=== PATIENT | female | born 1935 | race Caucasian/White ===

== ENCOUNTER 2018-09-30 16:30 | Inpatient (IN) | payer OTHER, MEDICARE ==
[~2018-09-30] VITALS: Ht 152.4 cm; Wt 49.0 kg
[2018-09-30 16:46] VITALS: BP 138/52
[2018-09-30 17:34] LABS: URINE BILIRUBIN NEGATIVE (Negative); URINE BLOOD 2+ (Negative); URINE CLARITY CLEAR; URINE COLOR YELLOW; URINE GLUCOSE-RANDOM* 1+ (Negative); URINE KETONES NEGATIVE (Negative); URINE LEUKOCYTES 1+ (Negative); URINE NITRITE NEGATIVE (Negative); URINE PROTEIN (DIPSTICK) 2+ (Negative); URINE UROBILINOGEN 0.2 E.U./dl (0.2-1.0)
[2018-09-30 17:38] LABS: SQUAMOUS 4-10 Moderate /LPF (0-3); URINE WBC 6-15 Few /HPF (0-5)
[2018-09-30 17:39] LABS: BACTERIA 1-9 Few /HPF (None Seen); CRYSTALS None Seen /LPF (None Seen); URINE RBC 0-2 Rare /HPF (0-2)
[2018-09-30] MEDS ORDERED: METFORMIN HCL500 MG PO (18:19)
[2018-09-30 18:20] LABS: ABSOLUTE NEUTROPHILS 3.1 thou/uL (1.4-8.2); BASOPHILS 0.3 % (0.0-2.0); EOSINOPHILS 1.6 % (0.0-3.0); HEMATOCRIT 26.7 % (37.0-47.0); HEMOGLOBIN 9.6 gm/dL (12.0-15.0); LYMPHOCYTES 21.3 % (24.0-44.0); MCH 31.5 pg (26.0-34.0); MCHC 35.8 g/dL (28.0-37.0); MCV 87.9 fL (80.0-100.0); MONOCYTES 11.7 % (1.0-8.0); PLATELET COUNT 241 thou/uL (150-400); POLYS 65.1 % (36.0-66.0); RBC 3.04 mil/uL (4.20-5.00); RDW 13.9 % (10.5-14.5); WBC 4.7 thou/uL (4.0-11.0)
[2018-09-30] MEDS ORDERED: COZAAR 25 MG TA25 M1 PO (18:20)
[2018-09-30] MEDS ORDERED: SENNA8.6 MG PO (18:20)
[2018-09-30] MEDS ORDERED: AMARYL2 MG PO (18:20)
[2018-09-30] MEDS ORDERED: NEXIUM40 MG PO (18:20)
[2018-09-30] MEDS ORDERED: PROBIOTIC1 EAC1 PO (18:21)
[2018-09-30] MEDS ORDERED: DOXYCYCLINE 10100 MG PO (18:21)
[2018-09-30] MEDS ORDERED: CLEOCIN HCL150 MG PO (18:21)
[2018-09-30] MEDS ORDERED: OCUVITE ADULT1 EAC1 PO (18:22)
[2018-09-30 18:35] LABS: ALBUMIN 3.2 g/dL (3.4-5.0); ANION GAP 7 mmol/L (7-16); BUN 23 mg/dL (7-18); CALCIUM 8.6 mg/dL (8.5-10.1); CHLORIDE 80 mmol/L (98-107); CO2 24 mmol/L (21-32); CREATININE 0.6 mg/dL (0.6-1.0); GLUCOSE 133 mg/dL (74-106); POTASSIUM 4.1 mmol/L (3.5-5.1); SGOT 29 U/L (15-37); SGPT 27 U/L (30-65); TOTAL BILIRUBIN 0.5 mg/dL (<0.1-1.0); TOTAL PROTEIN 6.9 g/dL (6.4-8.2); TROPONIN-I <0.06 ng/mL (<0.06)
[2018-09-30 18:38] LABS: SODIUM 111 mmol/L (136-145)
[2018-09-30 21:42] LABS: URINE POTASSIUM-RANDOM* 51.7 mmol/L
[2018-09-30 22:47] VITALS: BP 169/73
[2018-09-30 22:49] VITALS: BP 169/73
[2018-09-30 23:59] VITALS: BP 150/64
[2018-10-01] MEDS ORDERED: OCUVITE ADULT1 EAC1 PO (00:36)
[2018-10-01 04:43] LABS: CALCIUM 8.2 mg/dL (8.5-10.1); CREATININE 0.5 mg/dL (0.6-1.0); POTASSIUM 4.1 mmol/L (3.5-5.1)
[2018-10-01 04:45] VITALS: BP 147/69
[2018-10-01 07:48] VITALS: BP 138/65
--- NOTE | 2018-10-01 10:55 | EKG ---
[address] [address] ELECTROCARDIOGRAM REPORT Name: BORIS ORDOÑEZ Room #: 362-P ADM IN M.R.#: [id number] Admission: 09/30/18 Attend Phys: Garcia Plaza MD Discharge: Date of : 34 Report #: [id number] THIS REPORT FOR: //name// [facility] ED Test Date: 2018-09-30 Test Time: 17:47:32 Pat Name: BORIS WEEMS Department: Room: 362 Gender: F Account Review Specialist: GEOFFREY : 1935 Requested By: Genet Bosch Order Number: [id number] MD: Alexei Dickson Measurements Intervals [place] Rate: 74 P: -11 OK: 160 QRS: 35 QRSD: 87 T: 35 QT: 388 QTc: 431 Interpretive Statements Sinus rhythm No previous ECG available for comparison Electronically Signed On 10-01-2018 10:55:19 CDT by Alexei Dickson [email or web address] <ELECTRONICALLY SIGNED> By: Alexei Dickson MD 10/01/18 1055 1747 1747 Alexei Dickson MD /EPI
[2018-10-01 15:52] VITALS: BP 159/74
--- NOTE | 2018-10-01 15:54 | H ---
[facility] [place] [address] HISTORY AND PHYSICAL Name: BORIS ORDOÑEZ Room #: 362-P ADM IN M.R.#: [id number] Admission: 09/30/18 Attend Phys: Garcia Plaza MD Discharge: Date of : 34 Report #: [id number] THIS REPORT FOR: //name// CC: Garcia Plaza DATE OF SERVICE: 09/30/2018 CHIEF COMPLAINT: Confusion. HISTORY OF PRESENT ILLNESS: The patient is an 83-year-old female who was brought to the Emergency Room last night by her family with confusion. They said for the last couple of days, she has lost her appetite and has had increased confusion, yesterday things seemed worse and they have noted that she has had a history of hyponatremia and anemia that required hospitalization in the past and brought her to the Emergency Room. The patient really could not provide any details due to her confusion. Her sodium on admission to ER yesterday was 111. She was hospitalized a month or 6 weeks ago with similar episode of hyponatremia with sodium, I believe around 115-117. 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 She has been treated by the bookmaker's clerk for about 6 months after callus was removed and she has had ongoing slow healing wound. This is being addressed at [facility] in the Wound Care Center on her bookmaker's clerk there. She has had an imaging study of the toe with no osteomyelitis and I believe an arterial study, which showed no significant arterial disease. She has been off and on antibiotics for several months including clindamycin, Bactrim and most recently doxycycline. PAST MEDICAL HISTORY: She has had several episodes of hyponatremia. First episode was several years ago when she had sinus surgery and it was attributed to the surgery and anesthesia itself. Her baseline sodium in the office seems to trend around 129-134. She also has a history of diabetes type 2, chronic sinusitis, hearing loss, osteoarthritis and proteinuria. She takes an ARB. PAST SURGICAL HISTORY: As above. FAMILY HISTORY: Noncontributory. SOCIAL HISTORY: She lives with her family. No chronic alcohol or tobacco use. ALLERGIES: SULFA. MEDICATIONS: Metformin, glimepiride, Cozaar, Senokot, Nexium, doxycycline, acidophilus, Ocuvite. [facility] [address] [place] [address] HISTORY AND PHYSICAL Name: BORIS ORDOÑEZ Room #: 362-P [facility] IN ..#: [id number] Admission: 09/30/18 Attend Phys: Garcia Plaza MD Discharge: Date of : 34 Report #: [id number] REVIEW OF SYSTEMS: She is unable to give review, but was complaining to the nurses earlier last night of back pain. OBJECTIVE: PHYSICAL EXAMINATION: VITAL SIGNS: Temperature 36.6, pulse 71, respirations 16, blood pressure 138/65, O2 sat 100% on room air. GENERAL: She is asleep, but easily arousable, appears confused, seems to recognize me. HEAD AND NECK: Unremarkable. She is hard of hearing. LUNGS: Clear. HEART: Regular. ABDOMEN: Soft, normoactive bowel sounds. EXTREMITIES: No edema. The right first toe has a dry old callous wound underneath on the plantar surface. No redness or drainage. NEUROLOGIC: She moves all extremities equally. LABORATORY DATA: Sodium this morning was 117, hemoglobin 9.6. Urinalysis had 2+ protein, few WBCs and bacteria. ASSESSMENT: 1. Hyponatremia. 2. Metabolic encephalopathy due to the above. 3. Anemia of chronic disease. 4. Diabetes type 2. 5. Electrolyte imbalance with hypomagnesemia. 6. Nonhealing wound, right first toe. PLAN: She has received normal saline overnight and her sodium is slightly improved. I will adjust the rate. I have asked the renal service to review her situation and see if there is any other medical cause of this issue other than medication effect, could this be result of antibiotics or possibly glimepiride. This is noted to have a very low percentage chance of hypoglycemia that will be discontinued for now. <ELECTRONICALLY SIGNED> By: Garcia Plaza MD 10/01/18 1554 0803 0824 Garcia Plaza MD /nt
[2018-10-01 16:15] LABS: CALCIUM 8.2 mg/dL (8.5-10.1); CREATININE 0.5 mg/dL (0.6-1.0); POTASSIUM 3.9 mmol/L (3.5-5.1)
--- NOTE | 2018-10-01 18:59 | NUR ---
ASSUMED PATIENT CARE AT 0700. A/O X2. DRWOSY. C/O BACK. XY SHOW LUMBER VERTEBRAL COMPRESION FRACTURE. INCONTINENT URINE. BED ARLRM ON. SLOWLY TOWARDS POC GOLAS.
[2018-10-01 19:45] VITALS: BP 166/83
[2018-10-02 04:42] VITALS: BP 138/55
[2018-10-02 05:28] LABS: CALCIUM 8.1 mg/dL (8.5-10.1); CREATININE 0.5 mg/dL (0.6-1.0); POTASSIUM 3.7 mmol/L (3.5-5.1)
--- NOTE | 2018-10-02 05:37 | NUR ---
PATIENT IS ALERT TO SELF. PATIENT HAS COMPRESSION FX POSSIBLE PROCEDURE WEDNESDAY. PATIENT IS ROOM AIR. PATIENT IS BED REST. PATIENT IS INCONTIENT. LBM. WAS THE 10TH. PATIENT IS Q2TURN. PATIENT IS RESTING COMFORTABLY IN BED. WCM. PATIENT IS PROGRESSING TO GOALS.
[2018-10-02 08:05] VITALS: BP 140/51
[2018-10-02 16:06] VITALS: BP 155/66
--- NOTE | 2018-10-02 18:10 | NUR ---
ASSUMED CARE AT 0700. PT IS INCONTINENT OF BOWEL AND BLADDER. FEMALE EXTERNAL CATHETER USED DUE TO PAIN AND SPINE FX'S. EXTERNAL CATHETER IS WORKING WELL. PT HAS BEEN ROUTINELY CHECKED FOR LEAKAGE AND ABRAHAM CHANGED PRN. URINE OUTPUT ADEQUATE. URINE SPECIMAN SENT TO LAB.
[2018-10-02 18:36] LABS: URINE BILIRUBIN NEGATIVE (Negative); URINE BLOOD 2+ (Negative); URINE CLARITY CLEAR; URINE COLOR YELLOW; URINE GLUCOSE-RANDOM* 3+ (Negative); URINE KETONES NEGATIVE (Negative); URINE LEUKOCYTES NEGATIVE (Negative); URINE NITRITE NEGATIVE (Negative); URINE PROTEIN (DIPSTICK) 1+ (Negative); URINE UROBILINOGEN 0.2 E.U./dl (0.2-1.0)
[2018-10-02 18:40] LABS: CASTS None Seen /LPF (None Seen); CRYSTALS None Seen /LPF (None Seen); SQUAMOUS 0-3 Few /LPF (0-3); URINE CREATININE-RANDOM* 18.3 mg/dL
[2018-10-02 18:41] LABS: AMORPHOUS PHOSPHATES Moderate /LPF (None Seen); BACTERIA 1-9 Few /HPF (None Seen); URINE RBC 3-10 Few /HPF (0-2); URINE WBC 0-5 Rare /HPF (0-5)
[2018-10-02 19:33] VITALS: BP 137/54
[2018-10-03 03:54] VITALS: BP 147/86
[2018-10-03 06:03] LABS: ALBUMIN 2.7 g/dL (3.4-5.0); CALCIUM 8.4 mg/dL (8.5-10.1); CREATININE 0.5 mg/dL (0.6-1.0); PHOSPHORUS 2.9 mg/dL (2.5-4.9); POTASSIUM 3.9 mmol/L (3.5-5.1)
[2018-10-03 08:12] VITALS: BP 161/72
[2018-10-03 15:05] VITALS: BP 161/72
--- NOTE | 2018-10-03 15:11 | NUR ---
INITIAL ASSESSMENT: NEMESIO reviewed chart and spoke with nursing and attending physician. Pt was admitted from home due to weakness/anemia. Pt is progressing towards goals for discharge. Discharge home with [facility] is anticipated for tomorrow. Therapy recommends pt have a new janet roller walker. Pt's last walker was issued in 2006 per pt's sister at bedside. NEMESIO left voice message for pt's niece/DPOA, Martha, to discuss discharge plan. Pt lives at home with her sister, who is able to provide care to pt. NEMESIO spoke with Camelia in intake at [facility], who states that pt is currently on service and they will resume HH when pt is discharged. Pt's PCP is Dr. Garcia Plaza. NEMESIO notified attending physician of need for janet roller walker. NEMESIO is following to assist as needed with discharge planning.
[2018-10-03 16:44] VITALS: BP 164/73
[2018-10-03 19:51] VITALS: BP 137/58
--- NOTE | 2018-10-03 19:57 | NUR ---
PATIENT A/O X2. UP AMBULATED WITH WALKER IN ROOM. INCONTINENT URINE. ASSISTED PATIENT TURN. PRGRESSING [facility] POC GOALS.
[2018-10-04 00:37] VITALS: BP 148/52
--- NOTE | 2018-10-04 00:50 | NUR ---
FACILITIES ASSISTANT SPOKE WITH DR. ROBB TO DOWNGRADE PT TO MED/SURG. DR. ROBB AGREED, AND PT WAS TRANSFERRED FROM 362 TO 462. GAVE REPORT TO 4W NURSE, AND TRANSFERRED PT. VSS AND PT REPORTS NO COMPLAINTS.
--- NOTE | 2018-10-04 04:13 | NUR ---
PT. ARRIVED AT FLOOR AROUND 0100; AWAKE; HEARD HEARING; ALERT TO PERSON; INCONTINENT; ST. NO HAVING PAIN; SCDs APPLIED; ABLE TO REST WITH EYES CLOSED FOR A FEW HOURS; EDUCATED ABOUT CALLING BEFORE STANDING FROM BED; NEEDS TO BE REMAINED FROM TIME TO TIME; CALM; COOPERATIVE; ASSESSMENT CHARGED; FOLLOWING POC; MONITORING; WILL PASS ON REPORT;
[2018-10-04 04:23] VITALS: BP 150/73
[2018-10-04 05:58] LABS: ALBUMIN 2.9 g/dL (3.4-5.0); CALCIUM 8.6 mg/dL (8.5-10.1); CREATININE 0.6 mg/dL (0.6-1.0); PHOSPHORUS 3.7 mg/dL (2.5-4.9); POTASSIUM 4.4 mmol/L (3.5-5.1)
[2018-10-04 07:28] VITALS: BP 152/59
[2018-10-04 14:43] VITALS: BP 176/70
--- NOTE | 2018-10-04 17:05 | NUR ---
Pt was moved to 4W from 3W. Pt not ready for discharge today due to low sodium. Anticipate discharge home tomorrow with [facility]. Pt's janet walker was delivered by [employer] earlier today. SW received call from Camelia at [facility], who states they are able to resume services when pt is discharged. NEMESIO is following to assist as needed with discharge planning.
--- NOTE | 2018-10-04 20:15 | NUR ---
PT A&OX4, VSS, PAIN IN BACK. PATIENT RESTING IN BED FAMILY AT BEDSIDE. MEDICATION GIVEN ORDERED. LUI CARE GIVEN. FALL PRECAUTIONS IN PLACE. WILL CONTINUE TO MONITOR.
[2018-10-04 20:16] VITALS: BP 150/71
--- NOTE | 2018-10-05 05:11 | NUR ---
PATIENT ALERT TO SELF ONLY. [place]IE. DENIES PAIN. WOUND ON R TOE. REMAINS ON A 1500 FLUID RESTRICTION. SLEPT MOST OF NIGHT.
[2018-10-05 06:20] LABS: CALCIUM 8.6 mg/dL (8.5-10.1); CREATININE 0.6 mg/dL (0.6-1.0); POTASSIUM 4.1 mmol/L (3.5-5.1)
[2018-10-05 07:14] VITALS: BP 159/50
[2018-10-05 14:16] VITALS: BP 147/50
--- NOTE | 2018-10-05 16:51 | NUR ---
CM MET WITH PT AND FAMILY THIS DAY. CM SPOKE WITH THEM ABOUT 5N ACUTE INPATIENT REAB A POSSIBLE OPTION. THEY INDICATED THAT THEY WOULD PREFER FOR PT TO RETURN HOME WITH [facility] AND FOLLOW UP WITH THE WOUND CLINIC THAT SHE GOES TO FOR CONTINUED CARE. CM NOTIFIED CARE TEAM. CM TO FOLLOW INDICATED WITH DC PLANNING.
[2018-10-05 21:00] VITALS: BP 151/60
--- NOTE | 2018-10-05 21:14 | NUR ---
WOUND CARE HEATHER PICTURES OF RIGHT GREAT TOE TAKEN, MEASUREMENTS TAKEN SEE CHART.
--- NOTE | 2018-10-06 05:56 | NUR ---
ALERT,HARD OF HEARING.ABLE TO TRANSFER WITH A WALKER FROM RECLINER TO BED WITH ASSIST.SMALL BM X 1.VOIDS.BRIEF IN PLACE.WOUND MEASUREMENT WAS DONE BY ANAHY MELÉNDEZ.SLEPT MOST OF THE NIGHT.FLUID RESTRICTION ENFORCED.WILL MONITOR AND CONTINUE POC.
[2018-10-06 06:21] VITALS: BP 150/59
[2018-10-06 08:20] VITALS: BP 159/60
--- NOTE | 2018-10-06 08:39 | NUR ---
I have reviewed the documentation by FRANCISCA SAUCEDO from 10/05/18 to 10/06/18 and I concur with it. Faisal CAMP
[2018-10-06 11:48] LABS: ALBUMIN 2.9 g/dL (3.4-5.0); CALCIUM 8.5 mg/dL (8.5-10.1); CREATININE 0.9 mg/dL (0.6-1.0); PHOSPHORUS 3.9 mg/dL (2.5-4.9); POTASSIUM 4.2 mmol/L (3.5-5.1)
[2018-10-06 15:03] VITALS: BP 128/44
[2018-10-06 16:44] LABS: URINE BILIRUBIN NEGATIVE (Negative); URINE BLOOD 3+ (Negative); URINE CLARITY CLEAR; URINE COLOR YELLOW; URINE GLUCOSE-RANDOM* 3+ (Negative); URINE KETONES NEGATIVE (Negative); URINE LEUKOCYTES-REFLEX NEGATIVE (Negative); URINE NITRITE-REFLEX NEGATIVE (Negative); URINE PROTEIN (DIPSTICK) 2+ (Negative); URINE SPECIFIC GRAVITY 1.015 (1.005-1.035); URINE UROBILINOGEN 0.2 E.U./dl (0.2-1.0)
[2018-10-06 16:57] LABS: MUCUS 0-3 Light strn/LPF (None Seen); SQUAMOUS None Seen /LPF (0-3)
[2018-10-06 16:58] LABS: BACTERIA-REFLEX 1-9 Few /HPF (None Seen); CASTS None Seen /LPF (None Seen); CRYSTALS None Seen /LPF (None Seen); URINE RBC >20 Many /HPF (0-2); URINE WBC-REFLEX 0-5 Rare /HPF (0-5)
--- NOTE | 2018-10-06 18:57 | NUR ---
PT A&OX2, VSS, PAIN IN BACK. TYLENOL GIVEN FOR PAIN. PATIENT HAS NO C/O OF SOA OR CHEST PAIN. MEDICATION GIVEN ORDERED. BLOOD IN URINE NOTICED THIS MORNING, BLOOD SUGAR HIGH 324, DOCTOR NOTIFIED, ORDERS PLACED. DRESSING CHANGED BY WOUND CARE NURSE. FAMILY AT BEDSIDE. PLAN IS TO D/C PATIENT HOME WITH HOME HEALTH; [facility]. WILL CONTINUE TO MONITOR.
[2018-10-06 19:28] VITALS: BP 111/40
[2018-10-07 04:06] VITALS: BP 138/50
[2018-10-07 05:34] LABS: ALBUMIN 2.9 g/dL (3.4-5.0); CALCIUM 8.7 mg/dL (8.5-10.1); CREATININE 0.6 mg/dL (0.6-1.0); POTASSIUM 4.2 mmol/L (3.5-5.1)
[2018-10-07 08:00] VITALS: BP 148/59; BP 96/49
--- NOTE | 2018-10-07 11:09 | NUR ---
Assess for length of stay. Admit with AMS, hyponatremia of 111 which is now improving to 127 with fluid restricted diet and NaCl pills. Hx diabetes. Advanced age 83, CHITIMACHA, lives with family members. Appetite usually good, sister follows BG management closely and asked several questions regarding diet for pt. BG controlled. Has diabetic toe ulcer, encouraged high protein foods as well. Wt has been stable x past yr. Physician has documented protein calorie malnutrition: will defer. Likes glucerna-will add 1x day. Low nutrition risk otherwise.
[2018-10-07 15:00] VITALS: BP 149/62
[2018-10-07 20:40] VITALS: BP 125/45
--- NOTE | 2018-10-08 04:12 | NUR ---
ASSUMED CARE SHERINE 1900. AXOX1 TO SELF. DOES CALL FOR BEDPAN. R FOOT PROTECTIVE BOOT ON ALL TIMES. NO S/S ACUTE DISTRESS NOTED OR REPORTED AT THIS TIME. WILL CONT TO [facility]INTOR FOR ANY CHANGES IN CONDITION.
[2018-10-08 07:58] VITALS: BP 175/65
[2018-10-08 11:22] VITALS: BP 175/65
--- NOTE | 2018-10-08 13:29 | NUR ---
Assumed pt care this am, pt denies any pain or distress has been verbalized or noted. DC orders given, DC top self, family and DPOA came to miner pick pt. Pt sister has arranged for [facility] with home health. Wound care and dressing change done with photos. IV removed, POC follwed, instructions given to the family. Pt is now dc.
--- NOTE | 2018-10-09 15:18 | HC ---
[facility] [place] [address] CONSULTATION Name: BORIS ORDOÑEZ Room #: 462-P [facility] IN M.R.#: [id number] Admission: 09/30/18 Attend Phys: Garcia Plaza MD Discharge: 10/08/18 Date of : 34 Report #: [id number] THIS REPORT FOR: //name// CC: Garcia Plaza DATE OF SERVICE: 10/01/2018 WOUND CARE CONSULTATION NOTE LOCATION: [facility] REASON FOR CONSULTATION: Nonhealing diabetic foot ulcer of the great toe. HISTORY OF PRESENT ILLNESS: The patient is an 83-year-old woman with diabetes, brought to the Emergency Room at [facility] with confusion and history of hyponatremia. She has a history of diabetes mellitus type 2. The patient has been treated in the Wound Care Center at [facility] on the [place] for over 6 months and is also under the care of a adult education manager. She has had multiple wound care treatments with failure to heal of the wound of her lateral aspect of the right great toe at the distal interphalangeal joint. The patient was felt to have good circulation in the leg, was to have arterial Doppler studies done; however, this test has not yet been done there. The patient's relative is with her and wishes to continue to have wound care at [facility] with an attempt to get this to heal and treated. Therefore, does not wish me to order advanced diagnostic tests such as arterial Dopplers, MRI to rule out osteomyelitis nor does she wilkerson me to obtain surgical or Podiatry consultation. PAST MEDICAL HISTORY: Episodic hyponatremia, diabetes mellitus type 2, chronic sinusitis, hearing loss, osteoarthritis. PAST SURGICAL HISTORY: Sinus surgery. FAMILY HISTORY: Noncontributory. SOCIAL HISTORY: She lives with her family and relatives with her. ALLERGIES: SULFA. MEDICATIONS: Include metformin, glimepiride, Cozaar, Senokot, Nexium, doxycycline, acidophilus, Ocuvite. REVIEW OF SYSTEMS: Not obtainable. PHYSICAL EXAMINATION: GENERAL: Shows a well-appearing elderly woman. [facility] [address] [place] [address] CONSULTATION Name: BORIS ORDOÑEZ Room #: 462-P [facility] IN M.R.#: [id number] Admission: 09/30/18 Attend Phys: Garcia Plaza MD Discharge: 10/08/18 Date of : 34 Report #: [id number] VITAL SIGNS: Afebrile, vital signs stable. HEENT: Mucous membranes moist. NECK: Supple. LUNGS: Clear. HEART: Shows regular rate and rhythm. ABDOMEN: Soft. EXTREMITIES: Examination of the lower extremities show no edema. Examination of the right foot shows an easily palpable bounding dorsalis pedis pulse. On the lateral aspect of the great toe at the distal interphalangeal joint, there is present a 0.9 cm x 0.7 cm open wound with exposed white bone at the base surrounded by margin of pink granulation tissue. The periosteum of the bone appears to be intact and there is no desiccation. There is no obvious tunneling. IMPRESSION: Diabetes mellitus type 2 with nonhealing diabetic ulcer of the right great toe. Although some studies have been done at [facility], there is a clinical suspicion of osteomyelitis based on the exposed bone and chronic nonhealing. The patient's family do not wish to enter into further diagnostic evaluation and treatment of the toe at this time. We will order simple silver alginate dressings to the open wound and a gauze wrap while the patient is here. Circulation appears to be intact. She will further pursue wound care at [facility] at discharge since further diagnostic evaluation and treatment of the toe at [facility] is currently in progress. Discussed with the family the nonhealing may be due to exposed bone and surgery may be necessary and ultimately possibly great toe amputation. If healing cannot be achieved, I will pursue further wound care for the toe once discharged back at [facility] wound Care. <ELECTRONICALLY SIGNED> By: Adams Caba MD 10/09/18 1518 1515 2302 Adams Caba MD /nt
--- NOTE | 2018-10-10 19:45 | HC ---
[facility] [place] [address] CONSULTATION Name: BORIS ORDOÑEZ Room #: 462-P [facility] IN M.R.#: [id number] Admission: 09/30/18 Attend Phys: Garcia Plaza MD Discharge: 10/08/18 Date of : 34 Report #: [id number] THIS REPORT FOR: //name// CC: Garcia Plaza REASON FOR CONSULTATION: Hyponatremia. REASON FOR PRESENTATION: Weakness and altered mental status. HISTORY OF PRESENT ILLNESS: An 83-year-old with past medical history of hyponatremia and anemia. She had required hospitalizations back in July for the same issue. She had persistent hyponatremia in the past and was evaluated back in 2012 for this issue by Dr. Perales, however, I am not able to retrieve this consultation. She is known to have diabetes mellitus and hypertension. She has chronic lower extremity wounds. Per the family, every time she gets treated with an antibiotic for her wounds or her sinusitis, she will go into hyponatremia. No nonsteroidal anti-inflammatory medication usage. No recent medication changes. She is not on any thiazide diuretics. She is maintained on losartan. She was recently started on clindamycin. Family notes decreased oral intake. She also has some mental status issues and was brought to the hospital to further evaluate. MEDICATIONS: 1. Losartan. 2. Metformin. 3. Esomeprazole. 4. Recently prescribed clindamycin. ALLERGIES: SULFA. FAMILY HISTORY: Significant for hypertension. REVIEW OF SYSTEMS: This is obtained from the family. GENERAL: Significant for weakness and confusion. CARDIOVASCULAR: No chest pain or palpitation. PULMONARY: No cough or hemoptysis. GASTROINTESTINAL: No nausea or vomiting, but significantly reduced oral intake. GENITOURINARY: No frequency, no urgency. PHYSICAL EXAMINATION: GENERAL: She is confused. VITAL SIGNS: Blood pressure was 106/52. HEAD AND NECK: Dry mucous membrane. CHEST: No crackles. CARDIOVASCULAR: No rub. ABDOMEN: Soft, nontender. LOWER EXTREMITIES: Dressing applied over the wounds. No edema. [facility] [address] [place] [address] CONSULTATION Name: BORIS ORDOÑEZ Room #: 462-[facility] IN [facility].#: [id number] Admission: 09/30/18 Attend Phys: Garcia Plaza MD Discharge: 10/08/18 Date of : 34 Report #: [id number] PAST MEDICAL HISTORY: 1. Diabetes mellitus. 2. Lower extremity wound. 3. Hysterectomy. ASSESSMENT, IMPRESSION AND PLAN: 1. Recurrent hyponatremia. 2. This sounds like a different presentation compared to her presentation back in 2012 when she had an element of SIADH. To me, this seems to be all due to decreased oral intake of solid, excessive water intake while having low solid intake. Her sodium has trended up nicely in the last 48 hours with the sodium going up from 111 to 121 which is a correction of 10 mEq in the last 48 hours. I will send the appropriate investigation for her hyponatremia. 3. She did have what seems to be a potential compression fracture of her vertebra and this by itself along with the pain could cause SIADH. As for now, I will keep on the normal saline. 4. Pending osmolarity studies and urine studies. 5. Very poor oral solid intake with excessive water intake might be contributing to her hyponatremia. Discussed at length with her family members fluid restriction. 6. Further plans will be discussed with the patient and her family once we obtain osmolarity studies. Meanwhile, continue with the normal saline. <ELECTRONICALLY SIGNED> By: Dino Pritchett MD 10/10/18 1945 1051 1232 Dino Pritchett MD /nt
== END 2018-10-08 13:15 | disposition home health service (06) | DRG 640 ==
LOC: ER 16:30 → EROBS 19:45 → 3W 19:45 → 4W 10-03 23:54
PROVIDERS: Hospitalist; Internal Medicine; Internal Medicine Nephrology; Physician Assistant; ADMIT Internal Medicine Geriatric Medicine
DX: E87.1 Hypo-osmolality and hyponatremia (principal); G93.41 Metabolic encephalopathy; E44.0 Moderate protein-calorie malnutrition; E87.6 Hypokalemia; M19.90 Unspecified osteoarthritis, unspecified site; E11.621 Type 2 diabetes mellitus with foot ulcer; D63.8 Anemia in other chronic diseases classified elsewhere; E83.42 Hypomagnesemia; E87.8 Other disorders of electrolyte and fluid balance, not elsewhere classified; Z68.21 Body mass index [BMI] 21.0-21.9, adult; Z88.2 Allergy status to sulfonamides; Z82.49 Family history of ischemic heart disease and other diseases of the circulatory system; Z90.710 Acquired absence of both cervix and uterus; Z79.899 Other long term (current) drug therapy
CPT/HCPCS: 10040; 10879